=== PATIENT | male | born 1965 | race Caucasian/White ===

== ENCOUNTER 2016-12-17 11:24 | Inpatient (IN) | payer OTHER ==
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
[2016-12-17] MEDS ORDERED: guaiFENesin/D-METHORPHAN HB 10 ML UNIT-DOSE CUPS PO PRN (17:44)
[2016-12-17] MEDS ORDERED: LOPERAMIDE HCL 2 MG CAPSULE PO PRN (17:44)
[2016-12-17] MEDS ORDERED: MAGNESIUM CITRATE 300 ML BOTTLE PO PRN (17:44)
[2016-12-17] MEDS ORDERED: ACETAMINOPHEN 325 MG TABLET (FP) PO PRN (17:44)
[2016-12-17] MEDS ORDERED: MAGNESIUM HYDROX 2400MG/30ML ORAL SUSPENSION 30 ML CUP PO PRN (17:44)
[2016-12-17] MEDS ORDERED: P-EPHED 60MG/TRIPROLIDI 2.5MG TABLET PO PRN (17:44)
[2016-12-17] MEDS ORDERED: NICOTINE POLACRILEX 4 MG GUM BC PRN (17:44)
[2016-12-17] MEDS ORDERED: MAG HYDROX/AL HYDROX/SIMETH 30 ML UNIT-DOSE CUP PO PRN (17:44)
[2016-12-17] MEDS ORDERED: diazePAM 5 MG TABLET PO ONE (19:00)
[2016-12-17] MEDS: MENTHOL/PHENOL 1 EACH UD MM PRN (20:18)
[2016-12-17] MEDS: NAPROXEN 500 MG TABLET (FP) PO SCH (22:47)
[2016-12-17] MEDS: CYCLOBENZAPRINE HCL 10 MG TABLET (FP) PO SCH (22:47)
[2016-12-17] MEDS: THIAMINE HCL 100 MG TABLET (FP) PO SCH (22:47)
[2016-12-17] MEDS: RANITIDINE HCL 150 MG TABLET (FP) PO SCH (22:47)
[2016-12-17] MEDS: diazePAM 5 MG TABLET PO SCH (22:47)
[2016-12-17] MEDS: diphenhydrAMINE HCL 50 MG CAPSULE PO PRN (22:49)
[2016-12-18] MEDS: CYCLOBENZAPRINE HCL 10 MG TABLET (FP) PO SCH ×3 (06:17→22:30)
[2016-12-18] MEDS: diazePAM 5 MG TABLET PO SCH ×3 (06:17→22:30)
[2016-12-18] MEDS ORDERED: METHADONE HCL 10 MG TABLET PO SCH (09:00)
--- NOTE | 2016-12-18 09:50 | EKG ---
Test Reason : Blood Pressure : / mmHG Vent. Rate : 059 BPM Atrial Rate : 059 BPM P-R Int : 184 ms QRS Dur : 092 ms QT Int : 488 ms P-R-T Axes : 075 076 051 degrees QTc Int : 483 ms SINUS BRADYCARDIA PROLONGED QT ABNORMAL ECG NO PREVIOUS ECGS AVAILABLE Confirmed by MD CAYDEN, DARA (2012) on 12/18/2016 9:49:55 AM Referred By: [facility] Confirmed By:DARA RODARTE MD
[2016-12-18 10:26] LABS: MCH 30.5 pg (25.7-33.7); MCHC 33.3 g/dl (32.0-35.9); MEAN CELL VOLUME 91.4 fl (80-96); MEAN PLT VOLUME 9.5 fl (7.5-11.1); PLATELET COUNT 124 K/MM3 (134-434); RDW 13.9 % (11.9-15.9); WHITE BLOOD COUNT 5.9 K/mm3 (4.0-10.0)
[2016-12-18] MEDS: RANITIDINE HCL 150 MG TABLET (FP) PO SCH ×2 (10:35→22:30)
[2016-12-18] MEDS: NAPROXEN 500 MG TABLET (FP) PO SCH ×2 (10:35→22:30)
[2016-12-18] MEDS: PRENATAL VITAMINS W/ FOLIC ACID TABLET (FP) PO SCH (10:35)
[2016-12-18] MEDS: NICOTINE 21 MG/24 HOURS TOPICAL PATCH TD SCH (10:36)
[2016-12-18] MEDS: diazePAM 5 MG TABLET PO PRN (10:36)
[2016-12-18] MEDS ORDERED: METHADONE HCL 10 MG TABLET ONE (10:38)
[2016-12-18 10:39] LABS: PH,URINE 6.5 (5.0-8.0); URINE APPEARANCE CLEAR; URINE BILIRUBIN NEGATIVE (NEGATIVE); URINE BLOOD NEGATIVE (NEGATIVE); URINE COLOR LT. YELLOW; URINE GLUCOSE (UA) NEGATIVE (NEGATIVE); URINE KETONE NEGATIVE (NEGATIVE); URINE LEUK ESTERASE NEGATIVE (NEGATIVE); URINE NITRITE NEGATIVE (NEGATIVE); URINE PROTEIN NEGATIVE (NEGATIVE); URINE UROBILINOGEN 0.2 mg/dL (0.2-1.0)
[2016-12-18] MEDS ORDERED: METHADONE HCL 40 MG DISPERSABLE TABLET ONE (10:39)
[2016-12-18] MEDS ORDERED: METHADONE 160 MG, METHADONE 10 MG PO ONE (10:45)
[2016-12-18 11:21] LABS: ALBUMIN 3.6 g/dl (3.4-5.0); ANION GAP 4 (8-16); BILIRUBIN,TOTAL 0.7 mg/dL (0.2-1.0); CALCIUM 8.6 mg/dL (8.5-10.1); CO2 31 mmol/L (21-32); GLUCOSE,RANDOM 118 mg/dL (74-106); SGOT/AST 15 U/L (15-37); SGPT/ALT 13 U/L (12-78)
[2016-12-18 11:22] LABS: ALK PHOS 50 U/L (45-117)
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
[2016-12-18] MEDS: MENTHOL/PHENOL 1 EACH UD MM PRN (13:10)
--- NOTE | 2016-12-18 17:08 | PN ---
S CIWA - CIWA Score Nausea/Vomitin Muscle Tremors: 3 Anxiety: 4-Mod. Anxious/Guarded Agitation: 2 Paroxysmal Sweats: 3 Orientation: 0-Oriented Tacttile Disturbances: 2-Mild Itch/Numbness/Burn Auditory Disturbances: 0-None Visual Disturbances: 3-Moderate Sensitivity Headache: 0-None Present CIWA-Ar Total Score: 19 BHS Progress Note (SOAP) Subjective: Tremors, Interrupted sleep, diarrhea, Body Aches, sweating. Objective: PT. A & O X 3, OBSERVED AMBULATING ON UNIT. NO ACUTE DISTRESS. 12/18/16 17:10 Vital Signs Temperature 99.0 F 12/18/16 09:53 Pulse Rate 73 12/18/16 09:53 Respiratory Rate 16 12/18/16 09:53 Blood Pressure 105/55 12/18/16 09:53 O2 Sat by Pulse Oximetry (%) Laboratory Tests 12/17/16 12/18/16 12/18/16 10:54 06:00 06:00 WBC 5.9 RBC 3.86 L Hgb 11.8 Hct 35.3 L MCV 91.4 MCH 30.5 MCHC 33.3 RDW 13.9 Plt Count 124 L MPV 9.5 Sodium 139 Potassium 4.6 Chloride 104 Carbon Dioxide 31 Anion Gap 4 L BUN 13 Creatinine 1.0 Creat Clearance w eGFR > 60 Random Glucose 118 H Calcium 8.6 Total Bilirubin 0.7 AST 15 ALT 13 Alkaline Phosphatase 50 Total Protein 7.0 Albumin 3.6 Urine Color Lt. yellow Urine Appearance Clear Urine pH 6.5 Ur Specific [place] 1.015 Urine Protein Negative Urine Glucose (UA) Negative Urine Ketones Negative Urine Blood Negative Urine Nitrite Negative Urine Bilirubin Negative Urine Urobilinogen 0.2 RPR Titer 12/18/16 06:00 WBC RBC Hgb Hct MCV MCH MCHC RDW Plt Count MPV Sodium Potassium Chloride Carbon Dioxide Anion Gap BUN Creatinine Creat Clearance w eGFR Random Glucose Calcium Total Bilirubin AST ALT Alkaline Phosphatase Total Protein Albumin Urine Color Urine Appearance Urine pH Ur Specific [place] Urine Protein Urine Glucose (UA) Urine Ketones Urine Blood Urine Nitrite Urine Bilirubin Urine Urobilinogen RPR Titer Nonreactive LABS NOTED. Assessment: 12/18/16 17:10 WITHDRAWAL SYMPTOMS. Plan: CONTINUE DETOX. PRN IMMODIUM FOR DIARRHEA. INCREASE DAILY PO FLUID INTAKE.
[2016-12-18] MEDS: diphenhydrAMINE HCL 50 MG CAPSULE PO PRN (22:30)
[2016-12-18] MEDS: THIAMINE HCL 100 MG TABLET (FP) PO SCH (22:30)
[2016-12-19] MEDS: ALBUTEROL SO4 18 GM HFA INHALER IH PRN (04:00)
[2016-12-19] MEDS ORDERED: METHADONE HCL 40 MG DISPERSABLE TABLET ONE (05:00)
[2016-12-19] MEDS ORDERED: METHADONE HCL 10 MG TABLET ONE (05:00)
[2016-12-19] MEDS: diazePAM 5 MG TABLET PO PRN ×2 (05:55→13:04)
[2016-12-19] MEDS: CYCLOBENZAPRINE HCL 10 MG TABLET (FP) PO SCH ×3 (05:55→22:21)
[2016-12-19] MEDS: METHADONE 160 MG, METHADONE 10 MG PO SCH (05:55)
[2016-12-19] MEDS: MENTHOL/PHENOL 1 EACH UD MM PRN ×2 (06:45→22:27)
[2016-12-19] MEDS: RANITIDINE HCL 150 MG TABLET (FP) PO SCH ×2 (10:31→22:21)
[2016-12-19] MEDS: diazePAM 5 MG TABLET PO SCH ×2 (10:31→22:21)
[2016-12-19] MEDS: PRENATAL VITAMINS W/ FOLIC ACID TABLET (FP) PO SCH (10:31)
[2016-12-19] MEDS: NICOTINE 21 MG/24 HOURS TOPICAL PATCH TD SCH (10:31)
[2016-12-19] MEDS: NAPROXEN 500 MG TABLET (FP) PO SCH ×2 (10:31→22:22)
--- NOTE | 2016-12-19 16:47 | PN ---
S CIWA - CIWA Score Nausea/Vomitin Muscle Tremors: 4-Moderate,w/Arms Extend Anxiety: 4-Mod. Anxious/Guarded Agitation: 2 Paroxysmal Sweats: 2 Orientation: 0-Oriented Tacttile Disturbances: 1-Very Mild Itch/Numbness Auditory Disturbances: 0-None Visual Disturbances: 0-None Headache: 1-Very Mild CIWA-Ar Total Score: 17 BHS Progress Note (SOAP) Subjective: Diarrhea, body aches, sweating, chills, interrupted sleep Objective: 12/19/16 16:45 Last Vital Signs Temp Pulse Resp BP Pulse Ox 96.9 F L 81 18 114/62 12/19/16 14:13 12/19/16 14:13 12/19/16 14:13 12/19/16 14:13 Laboratory Tests 12/17/16 12/18/16 12/18/16 10:54 06:00 06:00 WBC 5.9 RBC 3.86 L Hgb 11.8 Hct 35.3 L MCV 91.4 MCH 30.5 MCHC 33.3 RDW 13.9 Plt Count 124 L MPV 9.5 Sodium 139 Potassium 4.6 Chloride 104 Carbon Dioxide 31 Anion Gap 4 L BUN 13 Creatinine 1.0 Creat Clearance w eGFR > 60 Random Glucose 118 H Calcium 8.6 Total Bilirubin 0.7 AST 15 ALT 13 Alkaline Phosphatase 50 Total Protein 7.0 Albumin 3.6 Urine Color Lt. yellow Urine Appearance Clear Urine pH 6.5 Ur Specific [place] 1.015 Urine Protein Negative Urine Glucose (UA) Negative Urine Ketones Negative Urine Blood Negative Urine Nitrite Negative Urine Bilirubin Negative Urine Urobilinogen 0.2 RPR Titer 12/18/16 06:00 WBC RBC Hgb Hct MCV MCH MCHC RDW Plt Count MPV Sodium Potassium Chloride Carbon Dioxide Anion Gap BUN Creatinine Creat Clearance w eGFR Random Glucose Calcium Total Bilirubin AST ALT Alkaline Phosphatase Total Protein Albumin Urine Color Urine Appearance Urine pH Ur Specific [place] Urine Protein Urine Glucose (UA) Urine Ketones Urine Blood Urine Nitrite Urine Bilirubin Urine Urobilinogen RPR Titer Nonreactive Labs noted Assessment: 12/19/16 16:46 Withdrawal symptoms Plan: Continue detox Encouraged to drink lots of water
[2016-12-19] MEDS: THIAMINE HCL 100 MG TABLET (FP) PO SCH (22:21)
[2016-12-19] MEDS: diphenhydrAMINE HCL 50 MG CAPSULE PO PRN (22:23)
[2016-12-20] MEDS ORDERED: METHADONE HCL 10 MG TABLET ONE (04:23)
[2016-12-20] MEDS ORDERED: METHADONE HCL 40 MG DISPERSABLE TABLET ONE (04:23)
[2016-12-20] MEDS: CYCLOBENZAPRINE HCL 10 MG TABLET (FP) PO SCH ×3 (05:24→22:23)
[2016-12-20] MEDS: METHADONE 160 MG, METHADONE 10 MG PO SCH (05:24)
[2016-12-20] MEDS: diazePAM 5 MG TABLET PO PRN ×2 (05:25→15:00)
[2016-12-20] MEDS: MENTHOL/PHENOL 1 EACH UD MM PRN (07:33)
[2016-12-20] MEDS: NAPROXEN 500 MG TABLET (FP) PO SCH ×2 (10:46→22:23)
[2016-12-20] MEDS: diazePAM 5 MG TABLET PO SCH ×2 (10:46→22:23)
[2016-12-20] MEDS: PRENATAL VITAMINS W/ FOLIC ACID TABLET (FP) PO SCH (10:46)
[2016-12-20] MEDS: NICOTINE 21 MG/24 HOURS TOPICAL PATCH TD SCH (10:46)
[2016-12-20] MEDS: RANITIDINE HCL 150 MG TABLET (FP) PO SCH ×2 (10:46→22:23)
--- NOTE | 2016-12-20 10:55 | PN ---
BHS Progress Note (SOAP) Subjective: NAUSA, SWEATS, INTERRUPTED LSEEP, INSOMNIA, TREMORS Objective: 12/20/16 10:55 Vital Signs - 8 hr 12/20/16 12/20/16 12/20/16 03:28 06:26 09:18 Temperature 96.4 F L 97.2 F L Pulse Rate 68 73 Respiratory 18 16 18 Rate Blood Pressure 100/59 101/57 Laboratory Tests 12/17/16 12/18/16 12/18/16 10:54 06:00 06:00 WBC 5.9 RBC 3.86 L Hgb 11.8 Hct 35.3 L MCV 91.4 MCH 30.5 MCHC 33.3 RDW 13.9 Plt Count 124 L MPV 9.5 Sodium 139 Potassium 4.6 Chloride 104 Carbon Dioxide 31 Anion Gap 4 L BUN 13 Creatinine 1.0 Creat Clearance w eGFR > 60 Random Glucose 118 H Calcium 8.6 Total Bilirubin 0.7 AST 15 ALT 13 Alkaline Phosphatase 50 Total Protein 7.0 Albumin 3.6 Urine Color Lt. yellow Urine Appearance Clear Urine pH 6.5 Ur Specific [place] 1.015 Urine Protein Negative Urine Glucose (UA) Negative Urine Ketones Negative Urine Blood Negative Urine Nitrite Negative Urine Bilirubin Negative Urine Urobilinogen 0.2 RPR Titer 12/18/16 06:00 WBC RBC Hgb Hct MCV MCH MCHC RDW Plt Count MPV Sodium Potassium Chloride Carbon Dioxide Anion Gap BUN Creatinine Creat Clearance w eGFR Random Glucose Calcium Total Bilirubin AST ALT Alkaline Phosphatase Total Protein Albumin Urine Color Urine Appearance Urine pH Ur Specific [place] Urine Protein Urine Glucose (UA) Urine Ketones Urine Blood Urine Nitrite Urine Bilirubin Urine Urobilinogen RPR Titer Nonreactive Assessment: 12/20/16 10:55 WITHDRAWAL SX, Plan: CONT DETOX, FLUIDS
[2016-12-20] MEDS ORDERED: ZOLPIDEM TARTRATE 10 MG TABLET (PARK CARE ONLY) PO PRN (22:00)
[2016-12-20] MEDS: THIAMINE HCL 100 MG TABLET (FP) PO SCH (22:23)
[2016-12-20] MEDS: ALBUTEROL SO4 18 GM HFA INHALER IH PRN (22:25)
[2016-12-21] MEDS ORDERED: METHADONE HCL 10 MG TABLET ONE (04:12)
[2016-12-21] MEDS ORDERED: METHADONE HCL 40 MG DISPERSABLE TABLET ONE (04:13)
[2016-12-21] MEDS: CYCLOBENZAPRINE HCL 10 MG TABLET (FP) PO SCH (05:35)
[2016-12-21] MEDS: METHADONE 160 MG, METHADONE 10 MG PO SCH (05:36)
[2016-12-21] MEDS: RANITIDINE HCL 150 MG TABLET (FP) PO SCH (09:05)
[2016-12-21] MEDS: NAPROXEN 500 MG TABLET (FP) PO SCH (09:05)
[2016-12-21] MEDS: PRENATAL VITAMINS W/ FOLIC ACID TABLET (FP) PO SCH (09:05)
[2016-12-21] MEDS: NICOTINE 21 MG/24 HOURS TOPICAL PATCH TD SCH (09:07)
[2016-12-21 09:28] VITALS: BP 122/64; PULSE 83; TEMP 97.8
[2016-12-21] MEDS ORDERED: diazePAM 5 MG TABLET PO SCH (10:00)
--- NOTE | 2016-12-21 15:43 | DS ---
[facility] Detox Discharge Summary Admission Date: 12/17/16 Discharge Date: 12/21/16 - History Present History: Alcohol Dependence, Cocaine Dependence, MMTP Pertinent Past History: Hep C COPD GERD - Physical Exam Results Vital Signs: Vital Signs Temperature 97.8 F 12/21/16 09:28 Pulse Rate 83 12/21/16 09:28 Respiratory Rate 18 12/21/16 09:28 Blood Pressure 122/64 12/21/16 09:28 O2 Sat by Pulse Oximetry (%) Pertinent Admission Physical Exam Findings: Withdrawal Sx. Laboratory Last Values WBC 5.9 K/mm3 (4.0-10.0) 12/18/16 06:00 RBC 3.86 M/mm3 (4.00-5.60) L 12/18/16 06:00 Hgb 11.8 GM/dL (11.7-16.9) 12/18/16 06:00 Hct 35.3 % (35.4-49) L 12/18/16 06:00 MCV 91.4 fl (80-96) 12/18/16 06:00 MCH 30.5 pg (25.7-33.7) 12/18/16 06:00 MCHC 33.3 g/dl (32.0-35.9) 12/18/16 06:00 RDW 13.9 % (11.9-15.9) 12/18/16 06:00 Plt Count 124 K/MM3 (134-434) L 12/18/16 06:00 MPV 9.5 fl (7.5-11.1) 12/18/16 06:00 Sodium 139 mmol/L (136-145) 12/18/16 06:00 Potassium 4.6 mmol/L (3.5-5.1) 12/18/16 06:00 Chloride 104 mmol/L (98-107) 12/18/16 06:00 Carbon Dioxide 31 mmol/L (21-32) 12/18/16 06:00 Anion Gap 4 (8-16) L 12/18/16 06:00 BUN 13 mg/dL (7-18) 12/18/16 06:00 Creatinine 1.0 mg/dL (0.7-1.3) 12/18/16 06:00 Creat Clearance w eGFR > 60 (>60) 12/18/16 06:00 Random Glucose 118 mg/dL (74-106) H 12/18/16 06:00 Calcium 8.6 mg/dL (8.5-10.1) 12/18/16 06:00 Total Bilirubin 0.7 mg/dL (0.2-1.0) 12/18/16 06:00 AST 15 U/L (15-37) 12/18/16 06:00 ALT 13 U/L (12-78) 12/18/16 06:00 Alkaline Phosphatase 50 U/L (45-117) 12/18/16 06:00 Total Protein 7.0 g/dl (6.4-8.2) 12/18/16 06:00 Albumin 3.6 g/dl (3.4-5.0) 12/18/16 06:00 Urine Color Lt. yellow 12/17/16 10:54 Urine Appearance Clear 12/17/16 10:54 Urine pH 6.5 (5.0-8.0) 12/17/16 10:54 Ur Specific [place] 1.015 (1.005-1.025) 12/17/16 10:54 Urine Protein Negative (NEGATIVE) 12/17/16 10:54 Urine Glucose (UA) Negative (NEGATIVE) 12/17/16 10:54 Urine Ketones Negative (NEGATIVE) 12/17/16 10:54 Urine Blood Negative (NEGATIVE) 12/17/16 10:54 Urine Nitrite Negative (NEGATIVE) 12/17/16 10:54 Urine Bilirubin Negative (NEGATIVE) 12/17/16 10:54 Urine Urobilinogen 0.2 mg/dL (0.2-1.0) 12/17/16 10:54 RPR Titer Nonreactive (NONREACTIVE) 12/18/16 06:00 labs noted - Treatment Hospital Course: Detox Protocol Followed, Detoxed Safely, Responded well, Discharged Condition Good, Rehab Referral Accepted Patient has Accepted a Rehab Referral to: [facility] - Medication Discharge Medications: Ambulatory Orders NK [No Known Home Medication] 12/21/16 - Diagnosis (1) Alcohol dependence with uncomplicated withdrawal Status: Acute (2) Opioid dependence on agonist therapy Status: Acute (3) COPD (chronic obstructive pulmonary disease) Status: Chronic Qualifiers: COPD type: emphysema Emphysema type: panlobular Qualified Code(s ): J43.1 - Panlobular emphysema (4) Cocaine dependence, uncomplicated Status: Chronic (5) GERD (gastroesophageal reflux disease) Status: Chronic Qualifiers: Esophagitis presence: without esophagitis Qualified Code(s): K21.9 - Gastro-esophageal reflux disease without esophagitis (6) Sedative, hypnotic or anxiolytic dependence with withdrawal, uncomplicated Status: Acute (7) Substance-induced anxiety disorder Status: Acute - AMA Did Patient Leave Against Medical Advice: No
== END 2016-12-21 09:31 | disposition home or self-care (01) | DRG 773 ==
LOC: YASAS 11:24 → Y3N 18:47
PROVIDERS: ADMIT Internal Medicine; ATTEND Internal Medicine
DX: F10.230 Alcohol dependence with withdrawal, uncomplicated (principal); F11.20 Opioid dependence, uncomplicated; F13.20 Sedative, hypnotic or anxiolytic dependence, uncomplicated; F14.20 Cocaine dependence, uncomplicated; F19.280 Other psychoactive substance dependence with psychoactive substance-induced anxiety disorder; J43.1 Panlobular emphysema; K21.9 Gastro-esophageal reflux disease without esophagitis; B18.2 Chronic viral hepatitis C; R26.2 Difficulty in walking, not elsewhere classified; Z86.69 Personal history of other diseases of the nervous system and sense organs; Z99.89 Dependence on other enabling machines and devices; Z87.898 Personal history of other specified conditions
CPT/HCPCS: 36415; 80053; 81003; 85027; 86593; 93005; 93010

== ENCOUNTER 2018-07-03 13:36 | Inpatient (IN) | payer OTHER ==
[2018-07-03 17:49] VITALS: BMI 24.0
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
[2018-07-03] MEDS ORDERED: MAGNESIUM HYDROX 2400MG/30ML ORAL SUSPENSION 30 ML CUP PO PRN (20:37)
[2018-07-03] MEDS ORDERED: MENTHOL/PHENOL 1 EACH UD MM PRN (20:37)
[2018-07-03] MEDS ORDERED: MAG HYDROX/AL HYDROX/SIMETH 30 ML UNIT-DOSE CUP PO PRN (20:37)
[2018-07-03] MEDS ORDERED: BISMUTH SUBSALICYLATE 524 MG/30 ML UD PO PRN (20:37)
[2018-07-03] MEDS ORDERED: hydrOXYzine PAMOATE 25 MG CAPSULE (FP) PO PRN (20:37)
[2018-07-03] MEDS ORDERED: ACETAMINOPHEN 325 MG TABLET (FP) PO PRN ×2 (20:37)
[2018-07-03] MEDS ORDERED: IBUPROFEN 400 MG TABLET (FP) PO PRN (20:37)
[2018-07-03] MEDS ORDERED: METHOCARBAMOL 500 MG TABLET PO PRN (20:37)
[2018-07-03] MEDS ORDERED: MAGNESIUM CITRATE 300 ML BOTTLE PO PRN (20:37)
[2018-07-03] MEDS ORDERED: MELATONIN 5 MG TABLETS PO PRN (20:37)
[2018-07-03] MEDS: diazePAM 5 MG TABLET PO SCH (22:22)
[2018-07-03] MEDS: THIAMINE HCL 100 MG TABLET (FP) PO SCH (22:23)
[2018-07-04] MEDS: diazePAM 5 MG TABLET PO SCH ×3 (05:53→21:51)
[2018-07-04] MEDS ORDERED: METHADONE HCL 10 MG TABLET PO ONE (08:43)
[2018-07-04] MEDS: NICOTINE POLACRILEX 4 MG GUM BUC PRN (08:57)
[2018-07-04] MEDS: diazePAM 5 MG TABLET PO PRN ×2 (08:57→16:54)
[2018-07-04] MEDS ORDERED: METHADONE HCL 40 MG DISPERSABLE TABLET ONE (09:59)
[2018-07-04] MEDS ORDERED: METHADONE HCL 10 MG TABLET ONE (09:59)
[2018-07-04] MEDS ORDERED: NICOTINE 14 MG/24 HOURS TOPICAL PATCH TD SCH (10:00)
[2018-07-04] MEDS ORDERED: METHADONE 120 MG, METHADONE 30 MG PO ONE (10:00)
[2018-07-04] MEDS: NICOTINE 21 MG/24 HOURS TOPICAL PATCH TD SCH (10:04)
[2018-07-04] MEDS: PRENATAL VITAMINS W/ FOLIC ACID TABLET (FP) PO SCH (10:06)
[2018-07-04 10:41] LABS: HEMATOCRIT 36.8 % (35.4-49); HEMOGLOBIN 12.5 GM/dL (11.7-16.9); MCH 30.4 pg (25.7-33.7); MEAN CELL VOLUME 89.3 fl (80-96); MEAN PLT VOLUME 9.1 fl (7.5-11.1); PLATELET COUNT 121 K/MM3 (134-434); RBC 4.12 M/mm3 (4.00-5.60); RDW 13.9 % (11.9-15.9)
[2018-07-04 10:55] LABS: ALBUMIN 3.7 g/dl (3.4-5.0); ALK PHOS 61 U/L (45-117); ANION GAP 7 MMOL/L (8-16); BILIRUBIN,TOTAL 0.3 mg/dL (0.2-1); BLOOD UREA NITROGEN 18 mg/dL (7-18); CALCIUM 8.5 mg/dL (8.5-10.1); CHLORIDE 106 mmol/L (98-107); CO2 28 mmol/L (21-32); GLUCOSE,RANDOM 89 mg/dL (74-106); POTASSIUM 4.5 mmol/L (3.5-5.1); SGOT/AST 11 U/L (15-37); SGPT/ALT 11 U/L (13-61); SODIUM 140 mmol/L (136-145); TOT PROT 7.5 g/dl (6.4-8.2)
--- NOTE | 2018-07-04 11:46 | PN ---
S CIWA - CIWA Score Nausea/Vomitin-No Nausea/No Vomiting Muscle Tremors: 3 Anxiety: 3 Agitation: 3 Paroxysmal Sweats: 3 Orientation: 0-Oriented Tacttile Disturbances: 0-None Auditory Disturbances: 0-None Visual Disturbances: 0-None Headache: 0-None Present CIWA-Ar Total Score: 12 S Progress Note (SOAP) Subjective: sweats shakes interrupted sleep body aches diarrhea Objective: 07/04/18 11:45 Vital Signs Temperature 96.8 F L 07/04/18 09:57 Pulse Rate 72 07/04/18 09:57 Respiratory Rate 18 07/04/18 09:57 Blood Pressure 124/69 07/04/18 09:57 O2 Sat by Pulse Oximetry (%) Laboratory Tests 07/04/18 07/04/18 07/04/18 07:00 07:00 07:00 WBC 4.0 RBC 4.12 Hgb 12.5 Hct 36.8 MCV 89.3 MCH 30.4 MCHC 34.0 RDW 13.9 Plt Count 121 L MPV 9.1 Sodium 140 Potassium 4.5 Chloride 106 Carbon Dioxide 28 Anion Gap 7 L BUN 18 Creatinine 1.0 Creat Clearance w eGFR 77.58 Random Glucose 89 Calcium 8.5 Total Bilirubin 0.3 AST 11 L ALT 11 L Alkaline Phosphatase 61 Total Protein 7.5 Albumin 3.7 RPR Titer Nonreactive aaox3 ambulating no acute distress Assessment: 07/04/18 11:45 withdrawal sx Plan: continue detox increase fluids immodium prn
[2018-07-04] MEDS ORDERED: hydrOXYzine HCL 25 MG TABLET (FP) PO PRN (18:50)
[2018-07-04] MEDS: THIAMINE HCL 100 MG TABLET (FP) PO SCH (21:51)
[2018-07-05] MEDS ORDERED: METHADONE HCL 40 MG DISPERSABLE TABLET ONE (04:23)
[2018-07-05] MEDS ORDERED: METHADONE HCL 10 MG TABLET ONE (04:23)
[2018-07-05] MEDS: METHADONE 120 MG, METHADONE 30 MG PO SCH (05:31)
[2018-07-05] MEDS ORDERED: METHADONE HCL 40 MG DISPERSABLE TABLET PO SCH (06:00)
[2018-07-05] MEDS: diazePAM 5 MG TABLET PO PRN ×2 (08:47→17:46)
[2018-07-05] MEDS: NICOTINE POLACRILEX 4 MG GUM BUC PRN (09:06)
[2018-07-05] MEDS ORDERED: LOPERAMIDE HCL 2 MG CAPSULE PO PRN (09:57)
[2018-07-05] MEDS: diazePAM 5 MG TABLET PO SCH ×2 (10:41→22:10)
[2018-07-05] MEDS: PRENATAL VITAMINS W/ FOLIC ACID TABLET (FP) PO SCH (10:41)
[2018-07-05] MEDS: NICOTINE 21 MG/24 HOURS TOPICAL PATCH TD SCH (10:41)
--- NOTE | 2018-07-05 10:51 | PN ---
S CIWA - CIWA Score Nausea/Vomitin-No Nausea/No Vomiting Muscle Tremors: 3 Anxiety: 2 Agitation: 2 Paroxysmal Sweats: 2 Orientation: 0-Oriented Tacttile Disturbances: 0-None Auditory Disturbances: 0-None Visual Disturbances: 0-None Headache: 0-None Present CIWA-Ar Total Score: 9 S Progress Note (SOAP) Subjective: anxiety diarrhea Objective: 07/05/18 10:50 Vital Signs Temperature 96.8 F L 07/05/18 09:14 Pulse Rate 65 07/05/18 09:14 Respiratory Rate 18 07/05/18 09:14 Blood Pressure 117/73 07/05/18 09:14 O2 Sat by Pulse Oximetry (%) Laboratory Tests 07/04/18 07/04/18 07/04/18 07:00 07:00 07:00 WBC 4.0 RBC 4.12 Hgb 12.5 Hct 36.8 MCV 89.3 MCH 30.4 MCHC 34.0 RDW 13.9 Plt Count 121 L MPV 9.1 Sodium 140 Potassium 4.5 Chloride 106 Carbon Dioxide 28 Anion Gap 7 L BUN 18 Creatinine 1.0 Creat Clearance w eGFR 77.58 Random Glucose 89 Calcium 8.5 Total Bilirubin 0.3 AST 11 L ALT 11 L Alkaline Phosphatase 61 Total Protein 7.5 Albumin 3.7 RPR Titer Nonreactive aaox3 ambulating no acute distress Assessment: 07/05/18 10:50 mild withdrawal sx Plan: continue detox increase fluids immodium prn d/c in am
[2018-07-05] MEDS: THIAMINE HCL 100 MG TABLET (FP) PO SCH (22:10)
[2018-07-06] MEDS ORDERED: METHADONE HCL 10 MG TABLET ONE (05:00)
[2018-07-06] MEDS ORDERED: METHADONE HCL 40 MG DISPERSABLE TABLET ONE (05:00)
[2018-07-06] MEDS: METHADONE 120 MG, METHADONE 30 MG PO SCH (05:47)
[2018-07-06] MEDS ORDERED: diazePAM 5 MG TABLET PO SCH (06:00)
--- NOTE | 2018-07-06 09:09 | DS ---
[facility] Detox Discharge Summary Admission Date: 07/03/18 Discharge Date: 07/06/18 - History Present History: Alcohol Dependence, Cocaine Dependence, Opioid Dependence, Sedative Dependence, MMTP - Physical Exam Results Vital Signs: Vital Signs Temperature 97.1 F L 07/06/18 06:30 Pulse Rate 59 L 07/06/18 06:30 Respiratory Rate 18 07/06/18 06:30 Blood Pressure 137/85 07/06/18 06:30 O2 Sat by Pulse Oximetry (%) - Treatment Hospital Course: Detox Protocol Followed, Detoxed Safely, Responded well, Discharged Condition Good, Rehab Referral Accepted - Medication Discharge Medications: Ambulatory Orders Clonazepam [Klonopin] 2 mg PO DAILY 07/03/18 Methadone HCl [Dolophine HCl] 150 mg PO DAILY 07/03/18 Mirtazapine [Remeron -] 30 mg PO HS 07/03/18 Percocet 5-325 mg Tablet 10 - 325 mg PO PRN 07/03/18 - Diagnosis (1) Anxiety disorder Current Visit: Yes Status: Chronic Qualifiers: Anxiety disorder type: generalized anxiety disorder Qualified Code(s): F41.1 - Generalized anxiety disorder (2) Nicotine dependence Current Visit: Yes Status: Chronic Qualifiers: Nicotine product type: cigarettes Substance use status: uncomplicated Qualified Code(s): F17.210 - Nicotine dependence, cigarettes, uncomplicated (3) Hep C w/o coma, chronic Current Visit: Yes Status: Resolved (4) Sedative, hypnotic or anxiolytic dependence with withdrawal, uncomplicated Current Visit: Yes Status: Chronic (5) Substance-induced anxiety disorder Current Visit: No Status: Acute (6) Weight loss Current Visit: No Status: Acute (7) Alcohol dependence with uncomplicated withdrawal Current Visit: Yes Status: Chronic (8) COPD (chronic obstructive pulmonary disease) Current Visit: No Status: Chronic Qualifiers: COPD type: emphysema Emphysema type: panlobular Qualified Code(s): J43.1 - Panlobular emphysema (9) Cocaine dependence, uncomplicated Current Visit: Yes Status: Chronic (10) GERD (gastroesophageal reflux disease) Current Visit: Yes Status: Chronic Qualifiers: Esophagitis presence: without esophagitis Qualified Code(s): K21.9 - Gastro -esophageal reflux disease without esophagitis (11) Methadone maintenance therapy patient Current Visit: Yes Status: Chronic - AMA Did Patient Leave Against Medical Advice: No (pt declined rehab/ pt going to his MMTP for reinstatment)
[2018-07-06 09:17] VITALS: BP 135/76; PULSE 71; TEMP 97
== END 2018-07-06 09:20 | disposition home or self-care (01) | DRG 773 ==
LOC: YASAS 13:36 → Y6N 21:16
PROVIDERS: ADMIT Surgery; ATTEND Surgery
PROC: HZ2ZZZZ Detoxification Services for Substance Abuse Treatment (ICD-10-PCS; principal; 2018-07-03)
DX: F10.230 Alcohol dependence with withdrawal, uncomplicated (principal); F11.20 Opioid dependence, uncomplicated; F13.230 Sedative, hypnotic or anxiolytic dependence with withdrawal, uncomplicated; F14.20 Cocaine dependence, uncomplicated; F17.210 Nicotine dependence, cigarettes, uncomplicated; F41.1 Generalized anxiety disorder; F19.280 Other psychoactive substance dependence with psychoactive substance-induced anxiety disorder; B18.2 Chronic viral hepatitis C; J43.1 Panlobular emphysema; K21.9 Gastro-esophageal reflux disease without esophagitis
CPT/HCPCS: 36415; 80053; 85027; 86593

== ENCOUNTER 2018-10-06 14:36 | Inpatient (IN) | payer OTHER ==
[2018-10-06 15:56] VITALS: BMI 22.7
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
[2018-10-06] MEDS ORDERED: hydrOXYzine PAMOATE 25 MG CAPSULE (FP) PO PRN (18:36)
[2018-10-06] MEDS ORDERED: MELATONIN 5 MG TABLETS PO PRN (18:36)
[2018-10-06] MEDS ORDERED: MAGNESIUM CITRATE 300 ML BOTTLE PO PRN (18:36)
[2018-10-06] MEDS ORDERED: MENTHOL/PHENOL 1 EACH UD MM PRN (18:36)
[2018-10-06] MEDS ORDERED: ACETAMINOPHEN 325 MG TABLET (FP) PO PRN ×2 (18:36)
[2018-10-06] MEDS ORDERED: MAGNESIUM HYDROX 2400MG/30ML ORAL SUSPENSION 30 ML CUP PO PRN (18:36)
[2018-10-06] MEDS ORDERED: IBUPROFEN 400 MG TABLET (FP) PO PRN (18:36)
[2018-10-06] MEDS ORDERED: MAG HYDROX/AL HYDROX/SIMETH 30 ML UNIT-DOSE CUP PO PRN (18:36)
[2018-10-06] MEDS ORDERED: BISMUTH SUBSALICYLATE 524 MG/30 ML UD PO PRN (18:36)
[2018-10-06] MEDS ORDERED: METHOCARBAMOL 500 MG TABLET PO PRN (18:36)
[2018-10-06] MEDS ORDERED: AMMONIUM LACTATE 12% LOTION 225 GM BOTTLE TP PRN (18:43)
[2018-10-06] MEDS: diazePAM 5 MG TABLET PO PRN (20:01)
[2018-10-06] MEDS: NICOTINE POLACRILEX 2 MG GUM BUC PRN (20:03)
[2018-10-06] MEDS: THIAMINE HCL 100 MG TABLET (FP) PO SCH (22:45)
[2018-10-06] MEDS: diazePAM 5 MG TABLET PO SCH (22:45)
[2018-10-07] MEDS: diazePAM 5 MG TABLET PO SCH ×3 (05:52→23:19)
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
--- NOTE | 2018-10-07 10:13 | PN ---
S CIWA - CIWA Score Nausea/Vomitin-No Nausea/No Vomiting Muscle Tremors: 3 Anxiety: 2 Agitation: 2 Paroxysmal Sweats: 3 Orientation: 0-Oriented Tacttile Disturbances: 0-None Auditory Disturbances: 0-None Visual Disturbances: 0-None Headache: 2-Mild CIWA-Ar Total Score: 12 S Progress Note (SOAP) Subjective: c/o sweats, shakes, anxiety, and headache Objective: 10/07/18 10:14 Vital Signs 10/07/18 10/07/18 10/07/18 03:30 06:00 09:13 Temperature 97.5 F L 95.3 F L Pulse Rate 54 L 66 Respiratory 18 18 18 Rate Blood Pressure 135/73 118/79 Labs pending. Assessment: 10/07/18 10:15 AOX3, in no acute respiratory distress. Full ROM, ambulating in the unit. withdrawal symptoms. Plan: continue detox.
[2018-10-07] MEDS: PRENATAL VITAMINS W/ FOLIC ACID TABLET (FP) PO SCH (10:27)
[2018-10-07] MEDS: diazePAM 5 MG TABLET PO PRN ×2 (10:27→17:11)
[2018-10-07 10:39] LABS: ALBUMIN 3.5 g/dl (3.4-5.0); BILIRUBIN,TOTAL 0.3 mg/dL (0.2-1); BLOOD UREA NITROGEN 14.8 mg/dL (7-18); CALCIUM 8.6 mg/dL (8.5-10.1); CREATININE 1.1 mg/dL (0.55-1.3); HEMOGLOBIN 11.8 GM/dL (11.7-16.9); MCH 30.1 pg (25.7-33.7); MCHC 33.6 g/dl (32.0-35.9); MEAN CELL VOLUME 89.4 fl (80-96); MEAN PLT VOLUME 8.9 fl (7.5-11.1); RBC 3.92 M/mm3 (4.00-5.60); RDW 13.4 % (11.9-15.9); TOT PROT 6.9 g/dl (6.4-8.2); WHITE BLOOD COUNT 3.6 K/mm3 (4.0-10.0)
[2018-10-07 10:57] LABS: PLATELET COUNT 114 K/MM3 (134-434)
[2018-10-07] MEDS ORDERED: METHADONE HCL 40 MG DISPERSABLE TABLET PO SCH (11:15)
[2018-10-07] MEDS ORDERED: METHADONE HCL 10 MG TABLET ONE (11:37)
[2018-10-07] MEDS ORDERED: METHADONE HCL 40 MG DISPERSABLE TABLET ONE (11:38)
[2018-10-07] MEDS: METHADONE 120 MG, METHADONE 30 MG PO SCH (11:40)
[2018-10-07] MEDS: NICOTINE 21 MG/24 HOURS TOPICAL PATCH TD SCH (13:00)
--- NOTE | 2018-10-07 16:14 | EKG ---
Test Reason : Blood Pressure : / mmHG Vent. Rate : 057 BPM Atrial Rate : 057 BPM P-R Int : 188 ms QRS Dur : 092 ms QT Int : 460 ms P-R-T Axes : 079 080 056 degrees QTc Int : 447 ms SINUS BRADYCARDIA OTHERWISE NORMAL ECG WHEN COMPARED WITH ECG OF 17-DEC-2016 19:33, NO SIGNIFICANT CHANGE WAS FOUND Confirmed by AP DICK MD ([id number]) on 10/07/2018 4:13:36 PM Referred By: Confirmed By:AP DICK MD
[2018-10-07] MEDS: MIRTAZAPINE 30 MG TABLET (FP) PO SCH (23:19)
[2018-10-07] MEDS: THIAMINE HCL 100 MG TABLET (FP) PO SCH (23:19)
[2018-10-08] MEDS ORDERED: METHADONE HCL 10 MG TABLET ONE (05:06)
[2018-10-08] MEDS ORDERED: METHADONE HCL 40 MG DISPERSABLE TABLET ONE (05:07)
[2018-10-08] MEDS: METHADONE 120 MG, METHADONE 30 MG PO SCH (05:48)
[2018-10-08] MEDS: diazePAM 5 MG TABLET PO SCH ×2 (05:48→17:20)
[2018-10-08] MEDS: NICOTINE POLACRILEX 2 MG GUM BUC PRN ×2 (05:52→17:06)
[2018-10-08] MEDS: diazePAM 5 MG TABLET PO PRN ×3 (10:11→22:44)
[2018-10-08] MEDS: PRENATAL VITAMINS W/ FOLIC ACID TABLET (FP) PO SCH (10:11)
[2018-10-08] MEDS: NICOTINE 21 MG/24 HOURS TOPICAL PATCH TD SCH (10:12)
[2018-10-08] MEDS ORDERED: ONDANSETRON *ODT* 4 MG TABLET SL PRN (10:58)
--- NOTE | 2018-10-08 13:04 | PN ---
[facility] CIWA - CIWA Score Nausea/Vomitin-Mild Nausea/No Vomiting Muscle Tremors: 2 Anxiety: 2 Agitation: 2 Paroxysmal Sweats: 3 Orientation: 0-Oriented Tacttile Disturbances: 0-None Auditory Disturbances: 0-None Visual Disturbances: 0-None Headache: 0-None Present CIWA-Ar Total Score: 10 S Progress Note (SOAP) Subjective: Tremor, excess sweating, nausea. Patient requesting inpatient admission to [facility] as he fears relapsing if discharged tomorrow plus still having increased withdrawal symptoms. Patient instructed to speak with his counselor tomorrow regarding arrangement for Rehab bed. Objective: 10/08/18 12:58 Last Vital Signs Temp Pulse Resp BP Pulse Ox 98.1 F 69 18 138/65 10/08/18 10:08 10/08/18 10:08 10/08/18 10:08 10/08/18 10:08 Laboratory Tests 10/07/18 10/07/18 10/07/18 07:50 07:50 07:50 WBC 3.6 L RBC 3.92 L Hgb 11.8 Hct 35.0 L MCV 89.4 MCH 30.1 MCHC 33.6 RDW 13.4 Plt Count 114 L MPV 8.9 Sodium 139 Potassium 4.0 Chloride 105 Carbon Dioxide 31 Anion Gap 3 L BUN 14.8 Creatinine 1.1 Est GFR (CKD-EPI)AfAm 87.13 Est GFR (CKD-EPI)NonAf 75.17 Random Glucose 67 L Calcium 8.6 Total Bilirubin 0.3 AST 11 L ALT 11 L Alkaline Phosphatase 63 Total Protein 6.9 Albumin 3.5 RPR Titer Nonreactive Labs reviewed: plt 114, serum glucose 67 Assessment: 10/08/18 13:04 Withdrawal symptoms Noted with mild hypoglycemia and thrombocytopenia Plan: Continue detox Encouraged PO water intake Hypoglycemia: could be r/t starvation, repeat fasting glucose, send HbA1c Thrombocytopenia: most likely r/t drug use and or history of hepatitis C. Encouraged abstinence and to follow up with PCP post discharge for management.
[2018-10-08] MEDS: MIRTAZAPINE 30 MG TABLET (FP) PO SCH (22:44)
[2018-10-08] MEDS: THIAMINE HCL 100 MG TABLET (FP) PO SCH (22:45)
[2018-10-09] MEDS ORDERED: METHADONE HCL 40 MG DISPERSABLE TABLET ONE (05:04)
[2018-10-09] MEDS ORDERED: METHADONE HCL 10 MG TABLET ONE (05:04)
[2018-10-09] MEDS: METHADONE 120 MG, METHADONE 30 MG PO SCH (05:31)
[2018-10-09] MEDS ORDERED: diazePAM 5 MG TABLET PO ONE (06:00)
[2018-10-09 06:15] VITALS: BP 148/80; PULSE 60; TEMP 97
--- NOTE | 2018-10-09 13:03 | DS ---
[facility] Detox Discharge Summary Admission Date: 10/06/18 Discharge Date: 10/09/18 - History Present History: Alcohol Dependence, Opioid Dependence, MMTP Additional Comments: PATIENT GOING HOME FOR TIME BEING TO ADDRESS PERSONAL MATTER RELATED TO HOUSING. IN THE MEANTIME, PATIENT WILL RETURN TO [facility], WHERE HE WAS PREVIOUSLY A CLIENT, FOR AFTERCARE. PATIENT REPORTS THAT HE WILL CONSIDER ADMISSION TO REHAB IN NEAR FUTURE. PATIENT WAS DISCHARGED FROM DETOX UNIT IN STABLE MEDICAL CONDITION. Pertinent Past History: Hep C, Nicotine Dependence, M.M.T.P. - Physical Exam Results Vital Signs: Vital Signs Temperature 97.0 F L 10/09/18 06:00 Pulse Rate 60 10/09/18 06:00 Respiratory Rate 18 10/09/18 06:00 Blood Pressure 148/80 10/09/18 06:00 O2 Sat by Pulse Oximetry (%) Pertinent Admission Physical Exam Findings: WITHDRAWAL SYMPTOMS. Laboratory Tests 10/07/18 10/07/18 10/07/18 07:50 07:50 07:50 WBC 3.6 L RBC 3.92 L Hgb 11.8 Hct 35.0 L MCV 89.4 MCH 30.1 MCHC 33.6 RDW 13.4 Plt Count 114 L MPV 8.9 Sodium 139 Potassium 4.0 Chloride 105 Carbon Dioxide 31 Anion Gap 3 L BUN 14.8 Creatinine 1.1 Est GFR (CKD-EPI)AfAm 87.13 Est GFR (CKD-EPI)NonAf 75.17 Random Glucose 67 L Calcium 8.6 Total Bilirubin 0.3 AST 11 L ALT 11 L Alkaline Phosphatase 63 Total Protein 6.9 Albumin 3.5 RPR Titer Nonreactive LABS NOTED. - Treatment Hospital Course: Detox Protocol Followed, Detoxed Safely, Responded well, Discharged Condition Good Patient has Accepted a Rehab Referral to: PT. WILL RETURN TO [facility]; WILL CONSIDER REHAB FOR LATER. 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
== END 2018-10-09 08:56 | disposition home or self-care (01) | DRG 773 ==
LOC: YASAS 14:36 → Y6N 19:30
PROVIDERS: ADMIT Surgery; ATTEND Surgery
PROC: HZ2ZZZZ Detoxification Services for Substance Abuse Treatment (ICD-10-PCS; principal; 2018-10-06)
DX: F10.230 Alcohol dependence with withdrawal, uncomplicated (principal); F11.20 Opioid dependence, uncomplicated; F14.10 Cocaine abuse, uncomplicated; F17.210 Nicotine dependence, cigarettes, uncomplicated; F19.280 Other psychoactive substance dependence with psychoactive substance-induced anxiety disorder; F19.282 Other psychoactive substance dependence with psychoactive substance-induced sleep disorder; D69.6 Thrombocytopenia, unspecified; E16.1 Other hypoglycemia; B18.2 Chronic viral hepatitis C
CPT/HCPCS: 36415; 80053; 85027; 86593; 93005; 93010